=== PATIENT | female | born 2000 | race Caucasian/White ===

== ENCOUNTER 2022-07-19 21:20 | Emergency (ER) | payer SELFPAY ==
[~2022-07-19] VITALS: Ht 167.6 cm; Wt 70.0 kg
[2022-07-20 00:15] VITALS: BP 132/84
== END 2022-07-20 00:20 | disposition home or self-care (01) ==
LOC: ER 21:20
DX: F10.129 Alcohol abuse with intoxication, unspecified (principal); Y90.9 Presence of alcohol in blood, level not specified
CPT/HCPCS: 36415; 80320; 82962; 99283; G0480

== ENCOUNTER 2024-08-23 16:00 | Inpatient (IN) | payer SELFPAY ==
[~2024-08-23] VITALS: Ht 170.2 cm; Wt 68.0 kg
[2024-08-23] MEDS: HYDROCODONE/ACETAMINOPHEN 5/325MG TABLET PO ONE (16:30)
[2024-08-23] MEDS: METHOCARBAMOL 500MG TABLET PO ONE (16:30)
[2024-08-23] MEDS: LIDOCAINE 5% PATCH TOP SCH (16:30)
[2024-08-23 20:54] LABS: BASOPHILS % 1.1 % (0.0-2.0); EOSINOPHILS % 0.2 % (0.0-5.0); HEMATOCRIT. 38.5 % (36.0-48.0); HEMOGLOBIN. 13.1 g/dL (12.0-16.0); LYMPHOCYTES % 32.8 % (20.0-50.0); MEAN CORPUSCULAR HEMOGLOBIN 31.6 pg (28.0-32.0); MEAN CORPUSCULAR VOLUME 92.9 fL (81.0-99.0); MEAN PLATELET VOLUME 8.1 fl (7.4-10.4); MONOCYTES % 5.4 % (2.0-8.0); NEUTROPHILS % 60.5 % (40.0-76.0); PLATELET 271 x1000/uL (130-400); RED BLOOD CELL COUNT 4.14 mill/uL (4.2-5.4); RED CELL DISTRIBUTION WIDTH 13.9 % (11.6-14.6); WHITE BLOOD COUNT 5.5 x1000/uL (4.5-11.0)
[2024-08-23 21:09] LABS: CHLORIDE 107 mEq/L (98-107); POTASSIUM 3.8 mEq/L (3.5-5.1); SODIUM 140 mEq/L (136-145)
[2024-08-23 21:10] LABS: CALCIUM 10.2 mg/dL (8.7-10.4); CARBON DIOXIDE 25 mEq/L (21-32)
[2024-08-23 21:14] LABS: HCG SCREEN NEGATIVE
[2024-08-23 21:15] LABS: CREATININE 0.8 mg/dL (0.6-1.0); GLUCOSE 92 mg/dL (70-105); UREA NITROGEN BLOOD 9 mg/dL (9-23)
[2024-08-23 21:17] LABS: ALANINE AMINOTRANSFERASE 12 IU/L (10-49); ALBUMIN 4.9 g/dL (3.2-4.8); ASPARTATE AMINOTRANSFERASE 23 IU/L (<34); BILIRUBIN TOTAL 0.5 mg/dL (0.1-1.0); PROTEIN TOTAL 7.8 g/dL (6.0-8.3)
[2024-08-23] MEDS ORDERED: ZOLPIDEM TARTRATE 5MG TABLET PO PRN (21:45)
[2024-08-23] MEDS ORDERED: NITROGLYCERIN 0.4MG TABLET SL SL PRN (21:45)
[2024-08-23 22:24] LABS: FOLIC ACID (FOLATE) SERUM > 20.00 ng/mL (>5.38); VITAMIN B12 SERUM 737 pg/mL (211-911)
[2024-08-23 22:52] LABS: IRON 68 ug/dL (50-170); TRIGLYCERIDE 122 mg/dL (0-150)
[2024-08-23 23:08] LABS: LDL CHOLESTEROL 123 mg/dL (5-100)
[2024-08-23 23:09] LABS: CHOLESTEROL 214 mg/dL (<200); HDL CHOLESTEROL 65 mg/dL (>65); TOTAL IRON BINDING CAPACITY 292 ug/dl (250-425)
[2024-08-23 23:11] LABS: T4 FREE 1.32 ng/dL (0.89-1.76); THYROID STIMULATING HORMONE 5.11 uIU/mL (0.55-4.78)
[2024-08-23 23:46] LABS: ETHANOL BLOOD < 10 mg/dL (<10)
[2024-08-23] MEDS: KETOROLAC 15MG/ML VIAL IV PRN (23:59)
[2024-08-24] VITALS: BP 105/64; PULSE 62; RESP 18; TEMP 36.89184; O2SAT 97
[2024-08-24 03:39] LABS: CLARITY URINE CLEAR (CLEAR); COLOR URINE YELLOW (YELLOW); GLUCOSE URINE NEGATIVE (NEGATIVE); KETONES URINE 1+ (NEGATIVE); LEUKOCYTE ESTERASE URINE NEGATIVE (NEGATIVE); NITRITE URINE NEGATIVE (NEGATIVE); OCCULT BLOOD URINE NEGATIVE (NEGATIVE); PROTEIN URINE NEGATIVE (NEGATIVE); SPECIFIC GRAVITY URINE 1.026 (1.005-1.030); UROBILINOGEN URINE 0.2 E.U./dL (0.2-1.0)
[2024-08-24 04:00] LABS: *AMPHETAMINES SCREEN URINE NEGATIVE (NEGATIVE); *BARBITURATES SCREEN URINE NEGATIVE (NEGATIVE); *BENZODIAZEPINES SCREEN URINE NEGATIVE (NEGATIVE); *COCAINE SCREEN URINE NEGATIVE (NEGATIVE); CANNABINOID URINE SCREEN PRESUMPTIVE POSITIVE (NEGATIVE); ECSTASY MDMA SCREEN URINE NEGATIVE (NEGATIVE); METHADONE URINE SCREEN NEGATIVE (NEGATIVE); OPIATES URINE SCREEN PRESUMPTIVE POSITIVE (NEGATIVE); PHENCYCLIDINE URINE SCREEN NEGATIVE (NEGATIVE)
[2024-08-24] MEDS: DEXAMETHASONE 10 MG/ML VIAL IV NR (04:50)
[2024-08-24] MEDS: DEXT 5%/LACTATED RINGERS 1,000 ML IV SCH (04:50)
[2024-08-24] MEDS: ONDANSETRON HCL 4MG/2ML INJ IV PRN (06:22)
[2024-08-24 06:26] LABS: CHLORIDE 106 mEq/L (98-107); POTASSIUM 3.7 mEq/L (3.5-5.1); SODIUM 139 mEq/L (136-145)
[2024-08-24 06:27] LABS: CALCIUM 9.6 mg/dL (8.7-10.4); CARBON DIOXIDE 23 mEq/L (21-32)
[2024-08-24 06:32] LABS: CREATININE 0.7 mg/dL (0.6-1.0); GLUCOSE 117 mg/dL (70-105); UREA NITROGEN BLOOD 11 mg/dL (9-23)
[2024-08-24 06:34] LABS: ALANINE AMINOTRANSFERASE 11 IU/L (10-49); ALBUMIN 4.2 g/dL (3.2-4.8); ASPARTATE AMINOTRANSFERASE 18 IU/L (<34); BILIRUBIN TOTAL 0.5 mg/dL (0.1-1.0); PHOSPHORUS 3.9 mg/dL (2.5-4.9)
[2024-08-24 06:53] LABS: BASOPHILS % 0.5 % (0.0-2.0); HEMATOCRIT. 36.3 % (36.0-48.0); HEMOGLOBIN. 12.2 g/dL (12.0-16.0); LYMPHOCYTES % 16.1 % (20.0-50.0); MEAN CORPUSCULAR HGB CONC 33.6 g/dL (31.0-37.0); MEAN CORPUSCULAR VOLUME 92.4 fL (81.0-99.0); MEAN PLATELET VOLUME 8.5 fl (7.4-10.4); MONOCYTES % 6.6 % (2.0-8.0); NEUTROPHILS % 76.8 % (40.0-76.0); PLATELET 243 x1000/uL (130-400); RED BLOOD CELL COUNT 3.93 mill/uL (4.2-5.4); RED CELL DISTRIBUTION WIDTH 13.6 % (11.6-14.6)
[2024-08-24] MEDS: PANTOPRAZOLE SODIUM 40 MG/VIAL IV SCH (09:00)
[2024-08-24] MEDS ORDERED: MAGNESIUM/ALUMINUM HYDROXIDE/SIMETHICONE 30ML UDC PO PRN (10:45)
[2024-08-24] MEDS ORDERED: DOCUSATE SODIUM 100MG CAPSULE PO PRN (10:45)
[2024-08-24] MEDS ORDERED: GUAIFENESIN 200MG/10ML SUGAR FREE UDC PO PRN (10:45)
[2024-08-24] MEDS ORDERED: ONDANSETRON HCL 4MG/2ML INJ IV PRN (10:45)
[2024-08-24] MEDS ORDERED: ACETAMINOPHEN 325MG TABLET PO PRN ×2 (10:45)
[2024-08-24] MEDS ORDERED: CLONIDINE 0.1MG TABLET PO PRN (10:45)
[2024-08-24] MEDS ORDERED: IPRATROPIUM/ALBUTEROL 0.5-3(2.5)MG/3ML NEB NEB PRN (10:45)
[2024-08-24] MEDS ORDERED: TRAMADOL 50MG TABLET PO PRN (11:45)
[2024-08-24] MEDS: ENOXAPARIN 40MG/0.4ML SYR SUBCUT SCH (12:00)
[2024-08-24] MEDS ORDERED: NALOXONE HCL 0.4MG/ML VIAL IV PRN (12:00)
[2024-08-24] MEDS: DEXAMETHASONE 4MG/ML 1ML VIAL IV SCH (17:02)
[2024-08-24 18:29] VITALS: BP 97/52; PULSE 76; RESP 16; TEMP 36.9184
[2024-08-24 19:25] LABS: PROTHROMBIN TIME 11.5 sec (9.6-11.0)
[2024-08-24 20:00] VITALS: BP 91/43; PULSE 84; RESP 18; TEMP 35.72508; O2SAT 99
[2024-08-25] VITALS: BP 95/49; PULSE 61; RESP 18; TEMP 36.33624; O2SAT 99
[2024-08-25 04:00] VITALS: BP 95/48; PULSE 72; RESP 18; TEMP 36.22512; O2SAT 98
[2024-08-25 10:31] VITALS: BP 107/61; PULSE 70; TEMP 97.6; O2SAT 99
== END 2024-08-25 11:09 | disposition home or self-care (01) | DRG 347 ==
LOC: ER 16:00 → EDBEDREQTM 22:07 → EDBEDREQ 22:07 → 5WST 23:51 → 6EST 08-24 13:29
PROVIDERS: ADMIT Internal Medicine; ATTEND Internal Medicine
DX: M51.16 Intervertebral disc disorders with radiculopathy, lumbar region (principal); M47.26 Other spondylosis with radiculopathy, lumbar region; R33.9 Retention of urine, unspecified; M48.061 Spinal stenosis, lumbar region without neurogenic claudication
CPT/HCPCS: 36415; 72131; 72146; 72148; 80053; 80061; 80305; 80320; 81003; 82607; 82746; 83036; 83540; 83550; 83735; 84100; 84439; 84443; 84703; 85025; 86850; 86900; 93970; 97166; 97535; 99285; C1893; J1100; J1650; J1885; J2405; J2470; G0480